=== PATIENT | female | born 1960 | race Caucasian/White ===

== ENCOUNTER 2020-01-05 23:19 | Inpatient (IN) | payer OTHER ==
[~2020-01-05] VITALS: Ht 157.5 cm; Wt 51.7 kg
[2020-01-05 23:26] VITALS: Ht 157.5 cm; Wt 51.7 kg
[2020-01-06 01:16] LABS: BASOPHIL % 1.1 % (0-2); PLATELET COUNT 398 x10^3mcL (130-400)
[2020-01-06 01:17] LABS: UA SPECIFIC GRAVITY 1.025 (1.005-1.035); microscopic required? YES; urine erythrocyte 3+ (NEGATIVE)
[2020-01-06 01:33] LABS: CALCIUM 8.9 mg/dL (8.5-10.1); CREATININE SERUM 1.2 mg/dL (0.6-1.0); POTASSIUM SERUM 3.6 mmol/L (3.5-5.1)
[2020-01-06 01:37] LABS: ALBUMIN 2.5 g/dL (3.4-5.0); BILIRUBIN TOTAL 0.1 mg/dL (0.20-1.00); TOTAL PROTEIN, SERUM 6.9 g/dL (6.4-8.2)
[2020-01-06] MEDS ORDERED: MEDI-FIRST IBU200 MG PO (02:40)
[2020-01-06] MEDS ORDERED: NORCO 10-325 T1 EACH PO (02:40)
[2020-01-06 03:49] VITALS: BP 103/61
[2020-01-06 05:16] VITALS: BP 98/61
[2020-01-06 08:34] VITALS: BP 101/53
[2020-01-06 12:55] VITALS: BP 111/39
[2020-01-06 16:57] VITALS: BP 10/60
[2020-01-06 21:08] VITALS: BP 103/60
[2020-01-07 06:37] VITALS: BP 107/63
[2020-01-07 07:30] LABS: ALBUMIN 2.2 g/dL (3.4-5.0); ALKALINE PHOSPHATASE 74 U/L (46-116); ALT/SGPT 16 U/L (14-59); AST/SGOT 16 U/L (15-37); BILIRUBIN TOTAL 0.11 mg/dL (0.20-1.00); CALCIUM 8.8 mg/dL (8.5-10.1); CARBON DIOXIDE 25.9 mmol/L (21-32); CHLORIDE SERUM 106 mmol/L (98-107); CREATININE SERUM 0.7 mg/dL (0.6-1.0); GFR1 > 60 mL/min; GLUCOSE SERUM 83 mg/dL (74-106); MAGNESIUM 1.7 mg/dL (1.8-2.4); POTASSIUM SERUM 3.7 mmol/L (3.5-5.1); SODIUM SERUM 140 mmol/L (136-145); TOTAL PROTEIN, SERUM 6.6 g/dL (6.4-8.2)
[2020-01-07 07:38] LABS: BASOPHIL % 0.9 % (0-2); PLATELET COUNT 352 x10^3mcL (130-400)
[2020-01-07 07:41] LABS: RED CELL DISTRIBUTION WIDTH 15.8 % (11.5-14.5)
[2020-01-07 08:07] VITALS: BP 116/62
[2020-01-07 12:34] VITALS: BP 95/52
[2020-01-07 16:30] VITALS: BP 110/62
[2020-01-07 20:45] VITALS: BP 97/65
[2020-01-08 05:00] VITALS: BP 94/60
[2020-01-08 06:34] LABS: BASOPHIL % 1.3 % (0-2); PLATELET COUNT 361 x10^3mcL (130-400)
[2020-01-08 06:35] LABS: ALKALINE PHOSPHATASE 71 U/L (46-116); ALT/SGPT 14 U/L (14-59); AST/SGOT 12 U/L (15-37); BILIRUBIN TOTAL 0.18 mg/dL (0.20-1.00); CALCIUM 8.6 mg/dL (8.5-10.1); CARBON DIOXIDE 26.6 mmol/L (21-32); CHLORIDE SERUM 104 mmol/L (98-107); CREATININE SERUM 0.8 mg/dL (0.6-1.0); GFR1 > 60 mL/min; GLUCOSE SERUM 88 mg/dL (74-106); MAGNESIUM 1.9 mg/dL (1.8-2.4); POTASSIUM SERUM 3.4 mmol/L (3.5-5.1); SODIUM SERUM 139 mmol/L (136-145); TOTAL PROTEIN, SERUM 6.7 g/dL (6.4-8.2)
[2020-01-08 06:42] LABS: RED CELL DISTRIBUTION WIDTH 15.8 % (11.5-14.5)
[2020-01-08 06:47] LABS: ALBUMIN 2.3 g/dL (3.4-5.0)
[2020-01-08 07:16] VITALS: BP 104/52
== END 2020-01-08 09:06 | disposition left against medical advice (07) | DRG 463 ==
LOC: ED 23:19 → MU 01-06 02:11
PROVIDERS: Emergency Medicine; ADMIT Hospitalist
DX: N10 Acute pyelonephritis (principal); Z93.6 Other artificial openings of urinary tract status; E86.0 Dehydration; Z87.440 Personal history of urinary (tract) infections; Z53.29 Procedure and treatment not carried out because of patient's decision for other reasons
CPT/HCPCS: 83880; G0378; J0696; J1885; J2270; J2405; J3475; J7030; J7060; Q0092

== ENCOUNTER 2020-01-28 07:06 | Inpatient (IN) | payer OTHER ==
[~2020-01-28] VITALS: Ht 157.5 cm; Wt 46.3 kg
[~2020-01-28 07:06] MED LIST: MEDI-FIRST IBU200 MG PO; NORCO 10-325 T1 EACH PO
[2020-01-28 07:13] VITALS: Ht 157.5 cm; Wt 46.3 kg
[2020-01-28 07:53] LABS: BASOPHIL % 0.8 % (0-2); PLATELET COUNT 344 x10^3mcL (130-400)
[2020-01-28 07:57] LABS: RED CELL DISTRIBUTION WIDTH 14.6 % (11.5-14.5)
[2020-01-28 08:30] LABS: CALCIUM 8.5 mg/dL (8.5-10.1); CARBON DIOXIDE 26.3 mmol/L (21-32); CREATININE SERUM 1.3 mg/dL (0.6-1.0); POTASSIUM SERUM 3.4 mmol/L (3.5-5.1)
[2020-01-28 08:35] LABS: ALBUMIN 2.7 g/dL (3.4-5.0); BILIRUBIN TOTAL 0.1 mg/dL (0.20-1.00); TOTAL PROTEIN, SERUM 7.8 g/dL (6.4-8.2)
[2020-01-28 08:48] LABS: microscopic required? YES; urine erythrocyte 3+ (NEGATIVE)
[2020-01-28 11:54] LABS: FREE T4 1.27 ng/dL (0.76-1.46); FREE THYROXINE INDEX 3.2 ug/dL (1.4-4.5); T3 TOTAL 1.53 ng/mL; T4(THYROXINE) 9.6 ug/dL (4.7-13.3)
[2020-01-28 12:36] LABS: MAGNESIUM 2.1 mg/dL (1.8-2.4); PHOSPHOROUS 3.4 mg/dL (2.5-4.9)
[2020-01-28 13:23] VITALS: BP 101/48
[2020-01-28 16:36] VITALS: BP 126/54
[2020-01-28 16:40] VITALS: BP 103/61
[2020-01-28 20:41] VITALS: BP 95/60
[2020-01-29 05:53] VITALS: BP 102/62
[2020-01-29 06:32] LABS: CALCIUM 8.4 mg/dL (8.5-10.1); CARBON DIOXIDE 27.7 mmol/L (21-32); CREATININE SERUM 1.1 mg/dL (0.6-1.0); POTASSIUM SERUM 3.8 mmol/L (3.5-5.1)
[2020-01-29 06:41] LABS: PLATELET COUNT 314 x10^3mcL (130-400)
[2020-01-29 06:53] LABS: RED CELL DISTRIBUTION WIDTH 14.6 % (11.5-14.5)
[2020-01-29 08:15] VITALS: BP 95/53
[2020-01-29 13:44] VITALS: BP 114/61
[2020-01-29 17:12] VITALS: BP 83/48
[2020-01-29 20:46] VITALS: BP 80/49
[2020-01-30 05:26] VITALS: BP 93/56
[2020-01-30 06:31] LABS: BASOPHIL % 1.3 % (0-2); PLATELET COUNT 333 x10^3mcL (130-400)
[2020-01-30 06:38] LABS: RED CELL DISTRIBUTION WIDTH 14.7 % (11.5-14.5)
[2020-01-30 06:54] LABS: BILIRUBIN TOTAL 0.11 mg/dL (0.20-1.00); CALCIUM 8.6 mg/dL (8.5-10.1); CARBON DIOXIDE 24.8 mmol/L (21-32); CREATININE SERUM 1.1 mg/dL (0.6-1.0); POTASSIUM SERUM 3.7 mmol/L (3.5-5.1); TOTAL PROTEIN, SERUM 6.9 g/dL (6.4-8.2)
[2020-01-30 07:00] LABS: ALBUMIN 2.3 g/dL (3.4-5.0)
[2020-01-30 09:13] VITALS: BP 95/56
[2020-01-30] MEDS ORDERED: AMP500 PO (10:15)
[2020-01-30] MEDS ORDERED: VSL#3112.5 Bill PO (10:16)
[2020-01-30 11:07] VITALS: BP 95/56
== END 2020-01-30 11:55 | disposition home or self-care (01) | DRG 466 ==
LOC: ED 07:06 → MU 11:40
PROVIDERS: Emergency Medicine; Radiology Diagnostic Radiology; ADMIT Hospitalist
PROC: 0T25X0Z Change Drainage Device in Kidney, External Approach (ICD-10-PCS; principal; 2020-01-29 10:00)
DX: N99.522 Malfunction of incontinent external stoma of urinary tract (principal); E44.0 Moderate protein-calorie malnutrition; C78.7 Secondary malignant neoplasm of liver and intrahepatic bile duct; F17.210 Nicotine dependence, cigarettes, uncomplicated; N39.0 Urinary tract infection, site not specified; G89.3 Neoplasm related pain (acute) (chronic); Y83.8 Other surgical procedures as the cause of abnormal reaction of the patient, or of later complication, without mention of misadventure at the time of the procedure; C53.9 Malignant neoplasm of cervix uteri, unspecified; Z90.710 Acquired absence of both cervix and uterus; Z56.0 Unemployment, unspecified; Z79.899 Other long term (current) drug therapy; Z68.1 Body mass index [BMI] 19.9 or less, adult
CPT/HCPCS: 50389; 50430; 82962; 84439; 99406; C1729; C1769; C1884; G0378; J2001; J2250; J2270; J2405; J2543; J3010; J7030; J7040; Q0092; Q9967

== ENCOUNTER 2020-01-30 16:15 | Emergency (ER) | payer OTHER ==
[~2020-01-30] VITALS: Ht 157.5 cm; Wt 46.3 kg
[~2020-01-30 16:15] MED LIST changes: +AMP500 PO; +VSL#3112.5 Bill PO
[2020-01-30 16:30] VITALS: Ht 157.5 cm; Wt 46.3 kg
[2020-01-30 17:29] LABS: BASOPHIL % 0.8 % (0-2); PLATELET COUNT 359 x10^3mcL (130-400); RED CELL DISTRIBUTION WIDTH 14.4 % (11.5-14.5)
[2020-01-30 17:37] LABS: CALCIUM 8.9 mg/dL (8.5-10.1); CARBON DIOXIDE 26.8 mmol/L (21-32); CREATININE SERUM 1.1 mg/dL (0.6-1.0); POTASSIUM SERUM 3.4 mmol/L (3.5-5.1)
[2020-01-30 17:42] LABS: TOTAL PROTEIN, SERUM 7.5 g/dL (6.4-8.2)
[2020-01-30 17:52] LABS: ALBUMIN 2.6 g/dL (3.4-5.0)
[2020-01-30 18:15] LABS: BILIRUBIN TOTAL 0.07 mg/dL (0.20-1.00)
[2020-01-30 19:40] VITALS: BP 116/66
== END 2020-01-30 19:40 | disposition home or self-care (01) ==
LOC: ED 16:15
PROVIDERS: Emergency Medicine
DX: Z46.6 Encounter for fitting and adjustment of urinary device (principal); Z85.53 Personal history of malignant neoplasm of renal pelvis
CPT/HCPCS: 36415

== ENCOUNTER 2020-01-31 10:13 | Emergency (ER) | payer OTHER ==
[~2020-01-31] VITALS: Ht 157.5 cm; Wt 46.3 kg
[2020-01-31 10:18] VITALS: Ht 157.5 cm; Wt 46.3 kg
[2020-01-31 11:16] LABS: BASOPHIL % 0.7 % (0-2); PLATELET COUNT 393 x10^3mcL (130-400); RED CELL DISTRIBUTION WIDTH 14.2 % (11.5-14.5)
[2020-01-31 11:21] LABS: microscopic required? YES; urine erythrocyte 2+ (NEGATIVE)
[2020-01-31 11:23] LABS: CALCIUM 9.4 mg/dL (8.5-10.1); CARBON DIOXIDE 27.4 mmol/L (21-32); CREATININE SERUM 1.2 mg/dL (0.6-1.0); POTASSIUM SERUM 4.1 mmol/L (3.5-5.1)
[2020-01-31 15:38] VITALS: BP 139/75
== END 2020-01-31 15:38 | disposition home or self-care (01) ==
LOC: ED 10:13
PROVIDERS: Emergency Medicine
DX: T83.128A Displacement of other urinary devices and implants, initial encounter (principal); N39.0 Urinary tract infection, site not specified; Z85.05 Personal history of malignant neoplasm of liver
CPT/HCPCS: C1729; C1884; C1887; J0696; J2001; J7040; J7060; Q0092; Q9967

== ENCOUNTER 2020-02-17 22:27 | Inpatient (IN) | payer OTHER ==
[~2020-02-17] VITALS: Ht 157.5 cm; Wt 46.7 kg
[2020-02-17 22:34] VITALS: Ht 157.5 cm; Wt 46.7 kg
[2020-02-17 23:22] LABS: BASOPHIL % 0.9 % (0-2)
[2020-02-17 23:23] LABS: UA SPECIFIC GRAVITY 1.025 (1.005-1.035); microscopic required? YES; urine erythrocyte 3+ (NEGATIVE)
[2020-02-17 23:23] LABS: PLATELET COUNT 486 x10^3mcL (130-400); RED CELL DISTRIBUTION WIDTH 14.9 % (11.5-14.5)
[2020-02-17 23:30] LABS: BILIRUBIN TOTAL 0.1 mg/dL (0.20-1.00); CALCIUM 8.2 mg/dL (8.5-10.1); CARBON DIOXIDE 28.1 mmol/L (21-32); CREATININE SERUM 1.3 mg/dL (0.6-1.0); POTASSIUM SERUM 3.5 mmol/L (3.5-5.1); TOTAL PROTEIN, SERUM 7.4 g/dL (6.4-8.2)
[2020-02-17 23:33] LABS: ALBUMIN 2.2 g/dL (3.4-5.0)
[2020-02-18] VITALS (7 sets, daily range): BP systolic 90–150; BP diastolic 50–76
[2020-02-19 05:31] VITALS: BP 93/51
[2020-02-19 07:35] LABS: CALCIUM 8.4 mg/dL (8.5-10.1); CARBON DIOXIDE 25.9 mmol/L (21-32); CHLORIDE SERUM 104 mmol/L (98-107); CREATININE SERUM 0.9 mg/dL (0.6-1.0); GFR1 > 60 mL/min; GLUCOSE SERUM 88 mg/dL (74-106); POTASSIUM SERUM 3.7 mmol/L (3.5-5.1); SODIUM SERUM 138 mmol/L (136-145)
[2020-02-19 07:42] LABS: MAGNESIUM 1.9 mg/dL (1.8-2.4); PHOSPHOROUS 3.8 mg/dL (2.5-4.9)
[2020-02-19 08:10] LABS: BASOPHIL % 0.4 % (0-2)
[2020-02-19 08:11] VITALS: BP 112/55
[2020-02-19 08:14] LABS: PLATELET COUNT 444 x10^3mcL (130-400); RED CELL DISTRIBUTION WIDTH 14.8 % (11.5-14.5)
[2020-02-19 11:58] VITALS: BP 111/58
[2020-02-19 16:00] VITALS: BP 110/51
== END 2020-02-19 16:24 | disposition left against medical advice (07) | DRG 466 ==
LOC: ED 22:27 → MU 02-18 03:25
PROVIDERS: Emergency Medicine; Internal Medicine Nephrology; ADMIT Internal Medicine Pulmonary Disease; ATTEND Internal Medicine Pulmonary Disease
PROC: 0T25X0Z Change Drainage Device in Kidney, External Approach (ICD-10-PCS; principal; 2020-02-18)
DX: N99.522 Malfunction of incontinent external stoma of urinary tract (principal); N17.9 Acute kidney failure, unspecified; E44.0 Moderate protein-calorie malnutrition; N13.6 Pyonephrosis; F17.210 Nicotine dependence, cigarettes, uncomplicated; R33.9 Retention of urine, unspecified; Y84.6 Urinary catheterization as the cause of abnormal reaction of the patient, or of later complication, without mention of misadventure at the time of the procedure; Z85.05 Personal history of malignant neoplasm of liver; Z53.29 Procedure and treatment not carried out because of patient's decision for other reasons; Z68.1 Body mass index [BMI] 19.9 or less, adult; C53.9 Malignant neoplasm of cervix uteri, unspecified
CPT/HCPCS: 99406; C1884; G0378; J0696; J1644; J2001; J2270; J2405; J3010; J7030; J7040; J7050; J7060; Q9967

== ENCOUNTER 2020-04-09 10:14 | Emergency (ER) | payer OTHER ==
[~2020-04-09] VITALS: Ht 157.5 cm; Wt 45.4 kg
[2020-04-09 10:20] VITALS: Ht 157.5 cm; Wt 45.4 kg
[2020-04-09 11:07] LABS: BASOPHIL % 1.6 % (0-2); PLATELET COUNT 383 x10^3mcL (130-400)
[2020-04-09 11:08] LABS: ALBUMIN 2.6 g/dL (3.4-5.0); BILIRUBIN TOTAL 0.29 mg/dL (0.20-1.00); CALCIUM 8.9 mg/dL (8.5-10.1); CARBON DIOXIDE 33.3 mmol/L (21-32); CREATININE SERUM 1.2 mg/dL (0.6-1.0); POTASSIUM SERUM 3.9 mmol/L (3.5-5.1); RED CELL DISTRIBUTION WIDTH 15.6 % (11.5-14.5); TOTAL PROTEIN, SERUM 7.8 g/dL (6.4-8.2)
[2020-04-09 14:08] VITALS: BP 118/76
== END 2020-04-09 14:08 | disposition home or self-care (01) ==
LOC: ED 10:14
PROVIDERS: Emergency Medicine
DX: Z46.6 Encounter for fitting and adjustment of urinary device (principal); F17.210 Nicotine dependence, cigarettes, uncomplicated
CPT/HCPCS: 99406; C1729; C1769; J0696; J2001; J7030; J7040; Q9967

== ENCOUNTER 2020-04-10 10:14 | Emergency (ER) | payer OTHER ==
[~2020-04-10] VITALS: Ht 157.5 cm; Wt 46.3 kg
[2020-04-10 10:19] VITALS: Ht 157.5 cm; Wt 46.3 kg
[2020-04-10 12:42] VITALS: BP 135/71
== END 2020-04-10 12:35 | disposition home or self-care (01) ==
LOC: ED 10:14
DX: Z46.6 Encounter for fitting and adjustment of urinary device (principal); F17.210 Nicotine dependence, cigarettes, uncomplicated; Z85.41 Personal history of malignant neoplasm of cervix uteri; Z98.890 Other specified postprocedural states
CPT/HCPCS: 99406

== ENCOUNTER 2020-04-22 10:02 | Emergency (ER) | payer OTHER ==
[~2020-04-22] VITALS: Ht 157.5 cm; Wt 45.8 kg
[2020-04-22 10:25] VITALS: Ht 157.5 cm; Wt 45.8 kg
[2020-04-22 11:57] VITALS: BP 97/59
== END 2020-04-22 11:57 | disposition home or self-care (01) ==
LOC: ED 10:02
DX: T83.032A Leakage of nephrostomy catheter, initial encounter (principal); Z85.05 Personal history of malignant neoplasm of liver; Z85.53 Personal history of malignant neoplasm of renal pelvis; Z90.710 Acquired absence of both cervix and uterus
CPT/HCPCS: 50435

== ENCOUNTER 2020-06-03 23:46 | Inpatient (IN) | payer OTHER, SELFPAY ==
[~2020-06-03] VITALS: Ht 157.5 cm; Wt 48.6 kg
[2020-06-03 23:53] VITALS: Ht 157.5 cm; Wt 48.6 kg
[2020-06-04 01:26] LABS: microscopic required? YES; urine erythrocyte 3+ (NEGATIVE)
[2020-06-04 01:29] LABS: BASOPHIL % 0.7 % (0-2); PLATELET COUNT 352 x10^3mcL (130-400)
[2020-06-04 01:31] LABS: RED CELL DISTRIBUTION WIDTH 16.6 % (11.5-14.5)
[2020-06-04 01:35] LABS: CALCIUM 8.3 mg/dL (8.5-10.1); CARBON DIOXIDE 26.6 mmol/L (21-32); CREATININE SERUM 1.3 mg/dL (0.6-1.0); POTASSIUM SERUM 3.1 mmol/L (3.5-5.1)
[2020-06-04 01:39] LABS: BILIRUBIN TOTAL 0.27 mg/dL (0.20-1.00); C REACTIVE PROTEIN 9.7 mg/dL (<=0.9); TOTAL PROTEIN, SERUM 7.6 g/dL (6.4-8.2)
[2020-06-04 01:52] LABS: ALBUMIN 2.6 g/dL (3.4-5.0)
[2020-06-04 02:02] LABS: microscopic required? YES
[2020-06-04 02:03] LABS: urine erythrocyte 3+ (NEGATIVE)
[2020-06-04] MEDS ORDERED: NORCO 10-325 T1 EACH PO (03:29)
[2020-06-04 04:29] VITALS: BP 97/54
[2020-06-04 08:53] VITALS: BP 96/62
[2020-06-04 13:07] VITALS: BP 99/51
[2020-06-04 17:50] VITALS: BP 96/57
[2020-06-04 20:28] VITALS: BP 98/60
[2020-06-05 03:05] VITALS: BP 95/56
[2020-06-05 07:02] LABS: PLATELET COUNT 302 x10^3mcL (130-400)
[2020-06-05 07:10] LABS: RED CELL DISTRIBUTION WIDTH 16.8 % (11.5-14.5)
[2020-06-05 07:31] LABS: CALCIUM 8.5 mg/dL (8.5-10.1); CARBON DIOXIDE 24.3 mmol/L (21-32); CREATININE SERUM 1.1 mg/dL (0.6-1.0)
[2020-06-05 12:10] VITALS: BP 84/52
[2020-06-05 17:00] VITALS: BP 82/48
[2020-06-05 17:34] VITALS: BP 87/50
== END 2020-06-05 18:09 | disposition left against medical advice (07) | DRG 720 ==
LOC: ED 23:46 → DU 06-04 02:32
PROVIDERS: Emergency Medicine; Internal Medicine; ADMIT Hospitalist; ATTEND Hospitalist
DX: A41.9 Sepsis, unspecified organism (principal); C22.8 Malignant neoplasm of liver, primary, unspecified as to type; C55 Malignant neoplasm of uterus, part unspecified; K59.00 Constipation, unspecified; E87.6 Hypokalemia; N39.0 Urinary tract infection, site not specified; Z20.828 Contact with and (suspected) exposure to other viral communicable diseases; Z85.05 Personal history of malignant neoplasm of liver; Z90.710 Acquired absence of both cervix and uterus; Z71.6 Tobacco abuse counseling
CPT/HCPCS: 36600; 83880; 85378; 87804; 99406; G0378; J0696; J1644; J3480; J7030; J7060; Q0092; U0003-CS

== ENCOUNTER 2020-10-22 15:17 | Emergency (ER) | payer OTHER ==
[~2020-10-22] VITALS: Ht 162.6 cm; Wt 51.7 kg
[2020-10-22 15:22] VITALS: Ht 162.6 cm; Wt 51.7 kg
[2020-10-22 16:27] LABS: BASOPHIL % 1.4 % (0.2-1.3); PLATELET COUNT 352 x10^3mcL (179-408)
[2020-10-22 16:29] LABS: RED CELL DISTRIBUTION WIDTH 16.3 % (12.3-17.7)
[2020-10-22 16:36] LABS: CALCIUM 8.8 mg/dL (8.5-10.1); CARBON DIOXIDE 26.1 mmol/L (21-32); CHLORIDE SERUM 103 mmol/L (98-107); GFR1 > 60 mL/min; GLUCOSE SERUM 130 mg/dL (74-106); POTASSIUM SERUM 3.6 mmol/L (3.5-5.1); SODIUM SERUM 136 mmol/L (136-145)
[2020-10-22 16:40] LABS: ALKALINE PHOSPHATASE 100 U/L (46-116); ALT/SGPT 16 U/L (14-59); AST/SGOT 12 U/L (15-37); BILIRUBIN TOTAL 0.1 mg/dL (0.20-1.00); LIPASE 42 IU/L (73-393); TOTAL PROTEIN, SERUM 7.5 g/dL (6.4-8.2)
[2020-10-22 16:41] LABS: ALBUMIN 2.6 g/dL (3.4-5.0)
[2020-10-22 17:27] LABS: UA SPECIFIC GRAVITY 1.025 (1.005-1.035); microscopic required? YES; urine erythrocyte 3+ (NEGATIVE)
[2020-10-22] MEDS ORDERED: FLAGYL500 MG PO (18:25)
[2020-10-22] MEDS ORDERED: CIPRO500 MG PO (18:25)
[2020-10-22 21:16] VITALS: BP 114/71
== END 2020-10-22 21:16 | disposition home or self-care (01) ==
LOC: ED 15:17
PROVIDERS: Emergency Medicine
DX: N39.0 Urinary tract infection, site not specified (principal); Z85.41 Personal history of malignant neoplasm of cervix uteri
CPT/HCPCS: J1885; J2405; J3490; J7030